=== PATIENT | female | born 1980 | race Caucasian/White ===

== ENCOUNTER 2018-12-23 13:17 | Emergency (ER) | payer BC ==
[2018-12-23 13:23] VITALS: BP 143/106; PULSE 88; TEMP 98.1; BMI 35.9
--- NOTE | 2018-12-23 13:23 | PDOC ---
Rapid Medical Evaluation Time Seen by Provider: 12/23/18 13:18 Medical Evaluation: Allergies Allergy/AdvReac Type Severity Reaction Status Date / Time No Known Allergies Allergy Verified 08/08/16 20:57 12/23/18 13:19 The patient presents for R sided flank pain/low back pain for one month Exam: NAD, no gross neuro deficits, gait intact, TTP of the r paraspinous muscles Orders: urine Pt to proceed to the ED for further evaluation Discharge Disposition - Diagnosis Low back pain Qualifiers: Chronicity: acute Back pain laterality: right Sciatica presence: without sciatica Qualified Code(s): M54.5 - Low back pain - Referrals - Patient Instructions - Post Discharge Activity
[2018-12-23] MEDS ORDERED: IBUPROFEN 400 MG TABLET (FP) PO ONE ×2 (14:01→14:18)
[2018-12-23 14:30] LABS: URINE APPEARANCE CLEAR; URINE BILIRUBIN NEGATIVE (NEGATIVE); URINE COLOR YELLOW; URINE GLUCOSE (UA) NEGATIVE (NEGATIVE); URINE KETONE NEGATIVE (NEGATIVE); URINE LEUK ESTERASE NEGATIVE (NEGATIVE); URINE NITRITE NEGATIVE (NEGATIVE); URINE PROTEIN NEGATIVE (NEGATIVE); URINE UROBILINOGEN 0.2 mg/dL (0.2-1.0)
--- NOTE | 2018-12-23 14:48 | PDOC ---
History of Present Illness - General Chief Complaint: Back Pain Stated Complaint: BACK PAIN Time Seen by Provider: 12/23/18 13:18 History Source: Patient Exam Limitations: No Limitations - History of Present Illness Associated Symptoms: denies: fever/chills Past History - Travel Traveled outside of the country in the last 30 days: No Close contact w/someone who was outside of country & ill: No - Past Medical History Allergies/Adverse Reactions: Allergies Allergy/AdvReac Type Severity Reaction Status Date / Time No Known Allergies Allergy Verified 12/23/18 13:21 Home Medications: Ambulatory Orders Amlodipine Besylate [Norvasc -] 10 mg PO DAILY 08/08/16 Cyclobenzaprine HCl [Flexeril -] 10 mg PO TID #21 tablet 12/23/18 Ibuprofen 800 mg PO ACDIN 7 Days #21 tablet 12/23/18 COPD: No - Reproductive History (#): 6 Para: 5 Tubal Ligation: No - Suicide/Smoking/Psychosocial Hx Smoking Status: No Smoking History: Never smoked Years of Tobacco Use: 0 Number of Cigarettes Smoked Daily: 0 Cigars Per Day: 0 Hx Alcohol Use: No Drug/Substance Use Hx: No Substance Use Type: None Review of Systems - Review of Systems Able to Perform ROS?: No Is the patient limited Singaporean proficient: No Constitutional: No: Chills, Fever ABD/GI: No: Abdominal Distended : No: Burning, Dysuria, Frequency, Flank Pain, Urgency Musculoskeletal: Yes: Back Pain. No: Joint Swelling, Muscle Pain, Muscle Weakness, Joint Stiffness Neurological: No: Numbness, Paresthesia, Tingling, Weakness, Unsteady Gait *Physical Exam - Vital Signs Last Vital Signs Temp Pulse Resp BP Pulse Ox 98.1 F 88 18 143/106 H 97 12/23/18 13:21 12/23/18 13:21 12/23/18 13:21 12/23/18 13:21 12/23/18 13:21 - Physical Exam General Appearance: Yes: Nourished Respiratory/Chest: positive: Lungs Clear, Normal Breath Sounds Cardiovascular: positive: Regular Rhythm, Regular Rate, S1, S2 Musculoskeletal: positive: Muscle Spasm (paraspinal tenderness in LS spine, stable gait) Integumentary: positive: Normal Color Neurologic: positive: business center representative II-XII NML intact, Fully Oriented, Alert ED Treatment Course - ADDITIONAL ORDERS Additional order review: Laboratory Results 12/23/18 12/23/18 14:11 13:29 Urine Color Yellow Urine Appearance Clear Urine pH 5.0 Ur Specific [place] 1.018 Urine Protein Negative Urine Glucose (UA) Negative Urine Ketones Negative Urine Blood Negative Urine Nitrite Negative Urine Bilirubin Negative Urine Urobilinogen 0.2 Ur Leukocyte Esterase Negative Urine HCG, Qual Negative - Medications Given in the ED: ED Medications Discontinued Medications Generic Name Dose Route Start Last Admin Trade Name Kerry PRN Reason Stop Dose Admin Ibuprofen 800 mg 12/23/18 14:01 12/23/18 14:32 Motrin - PO 12/23/18 14:02 800 mg ONCE ONE Administration Medical Decision Making - Medical Decision Making 12/23/18 14:43 38y/o F with chronic back pain X 1 month, denies UTI sx, f/c, b/b incontinence or saddle anesthesia, no trauma. Pt is mainly on the right side of back Exam with paraspinal tenderness on the right--Lumbasacral region UA wnl offered toradol pt fearful of needles Rx for nsaid and muscle relaxant f/u with PCP 12/23/18 16:29 12/23/18 19:21 *DC/Admit/Observation/Transfer Diagnosis at time of Disposition: Low back pain Qualifiers: Chronicity: acute Back pain laterality: right Sciatica presence: without sciatica Qualified Code(s): M54.5 - Low back pain - Discharge Dispostion Disposition: HOME Condition at time of disposition: Stable Decision to Admit order: No - Prescriptions Prescriptions: Cyclobenzaprine HCl [Flexeril -] 10 mg PO TID #21 tablet Ibuprofen 800 mg PO ACDIN 7 Days #21 tablet - Referrals - Patient Instructions Printed Discharge Instructions: DI for Low Back Pain, DI for Thoracic Back Pain Additional Instructions: you were seen for back pain today. YOur urine test was negative for urinary infection. Take medication as prescribed. Do not drive or operate heavy machinery while taking the muscle relaxant medication, Return to the ER if worsening symptom occurs - Post Discharge Activity
== END 2018-12-23 14:54 | disposition home or self-care (01) ==
LOC: JERFT 13:17
DX: M54.5 Low back pain (principal); G89.29 Other chronic pain
CPT/HCPCS: 81003; 84703; 87086; 99281-25

== ENCOUNTER 2019-07-12 16:32 | Inpatient (IN) | payer BC ==
--- NOTE | 2019-07-12 16:38 | PDOC ---
Rapid Medical Evaluation Chief Complaint: Pain Time Seen by Provider: 07/12/19 16:36 Medical Evaluation: Allergies Allergy/AdvReac Type Severity Reaction Status Date / Time No Known Allergies Allergy Verified 07/12/19 16:35 07/12/19 16:36 I have performed a brief in-person evaluation of this patient. The patient presents with a chief complaint of: NVD and abdominal pain since 4am. no recent travel, no known sick contacts. Pertinent physical exam findings: (+)febrile, Pt looks in mild discomfort from pain, epigastric abdominal tenderness I have ordered the following: CBC, CMP, lipase, mg, phos, UA, UCG. IV fluids, pepcid, zofran. The patient will proceed to the ED for further evaluation. Discharge Disposition - Diagnosis Abdominal pain - Referrals - Patient Instructions - Post Discharge Activity
[2019-07-12] MEDS ORDERED: ONDANSETRON 4 MG/2 ML VIAL IVPUSH ONE (16:39)
[2019-07-12] MEDS ORDERED: FAMOTIDINE 20 MG/50 ML IVPB 20 MG/50 ML MG IVPB ONE ×2 (16:39→19:29)
[2019-07-12] MEDS ORDERED: SODIUM CHLORIDE 1,000 ML IV STA (16:39)
[2019-07-12 17:41] LABS: BASO % 0.3 % (0-2.0); HEMATOCRIT 37.8 % (32.4-45.2); HEMOGLOBIN 12.3 GM/dL (10.7-15.3); LYMPH % 2.5 % (8-40); MCH 23.3 pg (25.7-33.7); MCHC 32.4 g/dl (32.0-36.0); MEAN CELL VOLUME 71.7 fl (80-96); MONO % 4.5 % (3.8-10.2); NEUT % 92.7 % (42.8-82.8); PLATELET COUNT 294 K/MM3 (134-434); RBC 5.27 M/mm3 (3.60-5.2); WHITE BLOOD COUNT 16.4 K/mm3 (4.0-10.0)
[2019-07-12 17:55] LABS: PH,URINE >= 9.0 (5.0-8.0); URINE APPEARANCE CLEAR; URINE BILIRUBIN NEGATIVE (NEGATIVE); URINE COLOR YELLOW; URINE GLUCOSE (UA) NEGATIVE (NEGATIVE); URINE KETONE NEGATIVE (NEGATIVE); URINE LEUK ESTERASE NEGATIVE (NEGATIVE); URINE NITRITE NEGATIVE (NEGATIVE); URINE PROTEIN TRACE (NEGATIVE); URINE UROBILINOGEN 0.2 mg/dL (0.2-1.0)
[2019-07-12 18:14] LABS: MAGNESIUM 1.6 mg/dL (1.8-2.4)
[2019-07-12 18:16] LABS: PHOSPHOROUS 0.9 mg/dL (2.5-4.9)
[2019-07-12 18:17] LABS: ALBUMIN 3.9 g/dl (3.4-5.0); BILIRUBIN,TOTAL 0.6 mg/dL (0.2-1); BLOOD UREA NITROGEN 10.9 mg/dL (7-18); CALCIUM 9.1 mg/dL (8.5-10.1); CREATININE 0.8 mg/dL (0.55-1.3); POTASSIUM 3.6 mmol/L (3.5-5.1); TOT PROT 7.4 g/dl (6.4-8.2)
--- NOTE | 2019-07-12 18:17 | PDOC ---
History of Present Illness - General Chief Complaint: Pain Stated Complaint: G.I.UPSET Time Seen by Provider: 07/12/19 16:36 History Source: Patient Exam Limitations: No Limitations - History of Present Illness Initial Comments: 07/12/19 18:16 HPI: 39yo F with PMH HTN presenting with abdominal pain, body aches, n / v, fever / chills since 4 AM (14 hours). Pt awoke with nausea and vomiting, with 10 + episodes of non-bloody non-bilious emesis. No change in diet, unique foods, known sick contacts, recent travels. No prior episodes like this, no FHx of IBD. Denies chest pain, cough, SOB, urinary symptoms. 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 All: NKDA Meds: Denies PMH: HTN PSH: 2008 SHx: Works in a long-term, [place] [employer] [place] Past History - Travel Traveled outside of the country in the last 30 days: No Close contact w/someone who was outside of country & ill: No - Past Medical History Allergies/Adverse Reactions: Allergies Allergy/AdvReac Type Severity Reaction Status Date / Time No Known Allergies Allergy Verified 07/12/19 16:35 Home Medications: Ambulatory Orders Amlodipine Besylate [Norvasc -] 10 mg PO DAILY 08/08/16 Cyclobenzaprine HCl [Flexeril -] 10 mg PO TID #21 tablet 12/23/18 Ibuprofen 800 mg PO ACDIN 7 Days #21 tablet 12/23/18 COPD: No HTN: Yes - Reproductive History (#): 6 Para: 5 Tubal Ligation: No - Immunization History Immunization Up to Date: Yes - Psycho Social/Smoking Cessation Hx Smoking Status: No Smoking History: Never smoked Years of Tobacco Use: 0 Number of Cigarettes Smoked Daily: 0 Cigars Per Day: 0 Hx Alcohol Use: No Drug/Substance Use Hx: No Substance Use Type: None Review of Systems - Review of Systems Able to Perform ROS?: Yes Is the patient limited Tajik proficient: Yes Constitutional: Yes: Chills, Fever, Weakness. No: Diaphoresis, Night Sweats, Unintentional Wgt. Loss, Unexplained wgt Loss HEENTM: No: Eye Pain, Nose Congestion, Tinnitus, Throat Swelling, Mouth Pain Respiratory: No: Cough, Shortness of Breath, Stridor, Wheezing Cardiac (ROS): No: Chest Pain, Edema, Irregular Heart Rate, Palpitations, Syncope, Chest Tightness ABD/GI: Yes: Diarrhea, Nausea, Poor Appetite, Poor Fluid Intake, Vomiting. No: Blood Streaked Bowels, Constipated, Rectal Bleeding, Indigestion, Abdominal cramping, Tarry Stools : No: Burning, Dysuria, Discharge, Frequency, Pain Musculoskeletal: Yes: Muscle Pain, Muscle Weakness. No: Back Pain Integumentary: No: Bruising, Pallor, Pruritus, Rash Neurological: Yes: Numbness, Weakness. No: Headache, Paresthesia, Tingling, Tremors, Unsteady Gait Psychiatric: Yes: Change in Appetite. No: Stressors, Mood Swings Endocrine: No: Excessive Sweating, Intolerance to Cold, Intolerance to Heat, Increased Hunger, Increased Thirst Hematologic/Lymphatic: No: Anemia, Blood Clots, Easy Bleeding, Easy Bruising All Other Systems: Reviewed and Negative *Physical Exam - Vital Signs Last Vital Signs Temp Pulse Resp BP Pulse Ox 100.5 F H 117 H 22 H 131/99 100 07/12/19 16:35 07/12/19 16:35 07/12/19 16:35 07/12/19 16:35 07/12/19 16:35 - Physical Exam Comments: 07/12/19 18:52 Vitals reviewed, notable for fever, tachycardia - meets SIRS criteria WDWN woman, appears stated age, NCAD, seated in a wheelchair in room 5 NCAT, MMM, EOMI, PERRL, normal morphologies RRR, nl s1s2, no murmurs appreciated CTABL, normal WOB, no wheezes / rales / rhonchi Soft, non-distended, tender in epigastrium and mildly in LUQ, non-tender in lower abdomen / RUQ WWP, no clubbing / cyanosis / edema Alert and oriented, MAEE, CN grossly intact, sensation to light touch preserved in LE, 5+ LE strength ED Treatment Course - LABORATORY CBC & Chemistry Diagram: 07/12/19 17:25 07/12/19 17:25 - ADDITIONAL ORDERS Additional order review: Laboratory Results 07/12/19 07/12/19 07/12/19 17:25 17:25 17:25 Magnesium 1.6 L Lipase 80 Beta HCG, Quant Urine Color Yellow Urine Appearance Clear Urine pH >= 9.0 H D Ur Specific [place] 1.017 Urine Protein Trace Urine Glucose (UA) Negative Urine Ketones Negative Urine Blood Negative Urine Nitrite Negative Urine Bilirubin Negative Urine Urobilinogen 0.2 Ur Leukocyte Esterase Negative Urine HCG, Qual Negative 07/12/19 17:25 Magnesium Lipase Beta HCG, Quant < 1.0 Urine Color Urine Appearance Urine pH Ur Specific [place] Urine Protein Urine Glucose (UA) Urine Ketones Urine Blood Urine Nitrite Urine Bilirubin Urine Urobilinogen Ur Leukocyte Esterase Urine HCG, Qual 07/12/19 17:25 RBC 5.27 H MCV 71.7 L MCHC 32.4 RDW 17.0 H MPV 9.0 Neutrophils % 92.7 H Lymphocytes % 2.5 L D Monocytes % 4.5 Eosinophils % 0.0 D Basophils % 0.3 Medical Decision Making - Medical Decision Making 07/12/19 18:46 39yo F with PMH HTN presenting with abdominal pain, n / v, fever / chills since 4 AM (14 hours). Febrile, tender, nauseous in the department. DDX: Viral gastroenteritis, new onset IDB/IBS. Initial labs with Phosphate 0.9, critically low - possible cause of patient's full body aches / cramps vs. feature of viral syndrome. Leukocytosis c/w infectious etiology. -CBC, CMP, Lipase, Mg, Phos -IVF, IV Tylenol, Pepcid, Zofran, Imodium -Saline Lock, Insert -IV Mg, IV Phos -UA, UCx, UPreg -EKG 07/12/19 18:55 -Spoke with pharmacy, recommended 30mm NaPhos in NS or D5W given over 8 hours -Phos reduction possibly exacerbated by underlying vitamin D deficiency -Negative test, no UTI, normal lipase 07/12/19 19:31 -Patient likely admission given severe hypophosphatemia of unclear etiology -PCP is [facility], will admit to hospitalist -EKG with NSR, normal axis, normal intervals, no ischemic changes 07/12/19 20:29 -Patient is now drinking water, feeling some improvement with medication Discharge - Discharge Information Problems reviewed: Yes Clinical Impression/Diagnosis: Abdominal pain Qualifiers: Abdominal location: epigastric Qualified Code(s): R10.13 - Epigastric pain Condition: Guarded - Admission Yes - Follow up/Referral - Patient Discharge Instructions - Post Discharge Activity
[2019-07-12 18:22] LABS: PLATELET ESTIMATE ADEQUATE
[2019-07-12] MEDS ORDERED: ACETAMINOPHEN 1000 MG/100 ML VIAL (NON FORMULARY) IVPB ONE (18:46)
[2019-07-12] MEDS ORDERED: MAGNESIUM SULF 50% (8.12 MEQ/2 ML-1 GM VIAL) IVPB ONE (18:50)
[2019-07-12] MEDS ORDERED: SODIUM PHOSPHATE - 30 MM in DEXTROSE 5%-WATER - 250 ML IVPB ONE (18:56)
[2019-07-12] MEDS ORDERED: LOPERAMIDE HCL 1 MG/5 ML UNIT DOSE CUP PO ONE (19:00)
[2019-07-12] MEDS ORDERED: ACETAMINOPHEN INJECTION 100 ML IVPB ONE (19:28)
[2019-07-12] MEDS ORDERED: ONDANSETRON 4 MG/2 ML VIAL ONE (19:29)
[2019-07-12] MEDS ORDERED: MAGNESIUM SULF 50% (8.12 MEQ/2 ML-1 GM VIAL) ONE (19:45)
--- NOTE | 2019-07-12 21:46 | PDOC ---
Documentation entered by Marimar Montes SCRIBE, acting as scribe for Apryl Steele MD. Apryl Steele MD: This documentation has been prepared by the scribe, Marimar Montes SCRIBE, under my direction and personally reviewed by me in its entirety. I confirm that the documentation accurately reflects all work, treatment, procedures, and medical decision making performed by me. Attending Attestation - Resident Resident Name: Holden Frazier - HPI HPI: 07/12/19 18:46 The patient is a 39-year-old female with a past medical history significant for HTN who presents to the emergency department with nausea, vomiting, diarrhea and abdominal pain since 4:00 am today. The patient reports she woke up feeling nauseous since then she had 10 episodes of NBNB vomiting, and diarrhea associated with abdominal pain, fever, and chills. Denies known sick contact or recent travel. - Physicial Exam PE: 07/12/19 21:[address] Frazier's physical exam - Medical Decision Making 07/12/19 21:42 phosphorous is critically low,will need to be repleted along with her magnesium pt febrile,tachycardic admitted for gastroenteritis and electrolyte abnormalities 07/12/19 21:45 07/12/19 22:15
[2019-07-12] MEDS ORDERED: ONDANSETRON 4 MG/2 ML VIAL IVPUSH PRN (22:25)
--- NOTE | 2019-07-12 22:40 | HP ---
Admitting History and Physical - Primary Care Physician PCP: Espinoza Orta - Admission Chief Complaint: Fever, Chills, Diarrhea, Abdominal Pain History of Present Illness: This is a 39 y/o woman with a PMHx of HTN. Who presents to the ED with nausea, vomiting, diarrhea and abdominal pain since 4:00 am today. The patient reports she woke up feeling nauseous since then she had 10 episodes of NBNB vomiting, and diarrhea associated with abdominal pain, fever, and chills. Denies known sick contact or recent travel. History Source: Patient Limitations to Obtaining History: No Limitations - Past Medical History Cardiovascular: Yes: HTN ...LMP: 06/23/19 ...: No - Past Surgical History Past Surgical History: Yes: None - Smoking History Smoking history: Never smoked Aproximately how many cigarettes per day: 0 - Alcohol/Substance Use Hx Alcohol Use: No History of Substance Use: reports: None - Social History Usual Living Arrangement: Yes: With Significant Other Do you think of yourself as: Straight/Heterosexual ADL: Independent History of Recent Travel: No Home Medications - Allergies Allergies/Adverse Reactions: Allergies Allergy/AdvReac Type Severity Reaction Status Date / Time No Known Allergies Allergy Verified 07/12/19 16:35 - Home Medications Home Medications: Ambulatory Orders Amlodipine Besylate [Norvasc -] 10 mg PO DAILY 08/08/16 Cyclobenzaprine HCl [Flexeril -] 10 mg PO TID #21 tablet 12/23/18 Ibuprofen 800 mg PO ACDIN 7 Days #21 tablet 12/23/18 Family Medical History Family Hx Cancer: Father (Colon Ca- ) Family Hx Gastrointestinal Disorder: Mother, Sister Family Hx Nuerologic Problems: Mother (Fibromyalgia) Review of Systems - Review of Systems Constitutional: reports: Chills, Fever, Loss of Appetite Eyes: reports: No Symptoms HENT: reports: No Symptoms Neck: reports: No Symptoms Cardiovascular: reports: No Symptoms Respiratory: reports: No Symptoms Gastrointestinal: reports: Abdominal Pain, Diarrhea, Nausea, Vomiting Genitourinary: reports: No Symptoms Breasts: reports: No Symptoms Reported Musculoskeletal: reports: No Symptoms Integumentary: reports: No Symptoms Neurological: reports: Headache Endocrine: reports: No Symptoms Hematology/Lymphatic: reports: No Symptoms Psychiatric: reports: No Symptoms Pain Intensity: 9 Physical Examination Vital Signs: Vital Signs Temperature 100.5 F H 10/14/19 16:35 Pulse Rate 117 H 07/12/19 16:35 Respiratory Rate 22 H 07/12/19 16:35 Blood Pressure 131/99 07/12/19 16:35 O2 Sat by Pulse Oximetry (%) 100 07/12/19 16:35 Constitutional: Yes: No Distress, Calm Eyes: Yes: WNL, Conjunctiva Clear, EOM Intact, PERRL HENT: Yes: WNL, Atraumatic, Normocephalic Neck: Yes: WNL, Supple, Trachea Midline Cardiovascular: Yes: WNL, Regular Rate and Rhythm, S1, S2 Respiratory: Yes: WNL, Regular, CTA Bilaterally Gastrointestinal: Yes: Soft, Abdomen, Obese, Hypoactive Bowel Sounds, Tenderness , Epigastrium ...Rectal Exam: Yes: Deferred Renal/: Yes: WNL Breast(s): Yes: WNL Musculoskeletal: Yes: WNL Extremities: Yes: WNL Edema: No Peripheral Pulses WNL: Yes Integumentary: Yes: WNL Neurological: Yes: WNL, Alert, Oriented, Cran Nerves II-XII Intact ...Motor Strength: WNL Psychiatric: Yes: WNL, Alert, Oriented Labs: CBC, BMP 07/12/19 17:25 07/12/19 17:25 Laboratory Results - last 24 hr 07/12/19 07/12/19 07/12/19 17:25 17:25 17:25 WBC 16.4 H RBC 5.27 H Hgb 12.3 Hct 37.8 MCV 71.7 L MCH 23.3 L D MCHC 32.4 RDW 17.0 H Plt Count 294 D MPV 9.0 Absolute Neuts (auto) 15.2 H Total Counted 100 Neutrophils % 92.7 H Neutrophils % (Manual) 88.0 H Band Neutrophils % 4.0 Lymphocytes % 2.5 L D Lymphocytes % (Manual) 3.0 L Monocytes % 4.5 Monocytes % (Manual) 5 Eosinophils % 0.0 D Basophils % 0.3 Nucleated RBC % 0 Platelet Estimate Adequate Platelet Comment No clumping noted Sodium 136 Potassium 3.6 Chloride 105 Carbon Dioxide 22 Anion Gap 9 BUN 10.9 Creatinine 0.8 Est GFR (CKD-EPI)AfAm 106.88 Est GFR (CKD-EPI)NonAf 92.22 Random Glucose 87 Calcium 9.1 Phosphorus Magnesium Total Bilirubin 0.6 AST 13 L ALT 19 Alkaline Phosphatase 82 Total Protein 7.4 Albumin 3.9 Lipase Beta HCG, Quant < 1.0 Urine Color Urine Appearance Urine pH Ur Specific [place] Urine Protein Urine Glucose (UA) Urine Ketones Urine Blood Urine Nitrite Urine Bilirubin Urine Urobilinogen Ur Leukocyte Esterase Urine HCG, Qual Influenza A (Rapid) Influenza B (Rapid) 07/12/19 07/12/19 07/12/19 17:25 17:25 17:25 WBC RBC Hgb Hct MCV MCH MCHC RDW Plt Count MPV Absolute Neuts (auto) Total Counted Neutrophils % Neutrophils % (Manual) Band Neutrophils % Lymphocytes % Lymphocytes % (Manual) Monocytes % Monocytes % (Manual) Eosinophils % Basophils % Nucleated RBC % Platelet Estimate Platelet Comment Sodium Potassium Chloride Carbon Dioxide Anion Gap BUN Creatinine Est GFR (CKD-EPI)AfAm Est GFR (CKD-EPI)NonAf Random Glucose Calcium Phosphorus 0.9 L* Magnesium 1.6 L Total Bilirubin AST ALT Alkaline Phosphatase Total Protein Albumin Lipase 80 Beta HCG, Quant Urine Color Yellow Urine Appearance Clear Urine pH >= 9.0 H D Ur Specific [place] 1.017 Urine Protein Trace Urine Glucose (UA) Negative Urine Ketones Negative Urine Blood Negative Urine Nitrite Negative Urine Bilirubin Negative Urine Urobilinogen 0.2 Ur Leukocyte Esterase Negative Urine HCG, Qual Negative Influenza A (Rapid) Influenza B (Rapid) 07/12/19 07/13/19 22:56 05:27 WBC RBC Hgb Hct MCV MCH MCHC RDW Plt Count MPV Absolute Neuts (auto) Total Counted Neutrophils % Neutrophils % (Manual) Band Neutrophils % Lymphocytes % Lymphocytes % (Manual) Monocytes % Monocytes % (Manual) Eosinophils % Basophils % Nucleated RBC % Platelet Estimate Platelet Comment Sodium 140 Potassium 3.2 L Chloride 107 Carbon Dioxide 26 Anion Gap 7 L BUN 8.8 Creatinine 0.7 Est GFR (CKD-EPI)AfAm 125.61 Est GFR (CKD-EPI)NonAf 108.38 Random Glucose 96 Calcium 8.0 L Phosphorus 4.1 Magnesium 2.5 H Total Bilirubin AST ALT Alkaline Phosphatase Total Protein Albumin Lipase Beta HCG, Quant Urine Color Urine Appearance Urine pH Ur Specific [place] Urine Protein Urine Glucose (UA) Urine Ketones Urine Blood Urine Nitrite Urine Bilirubin Urine Urobilinogen Ur Leukocyte Esterase Urine HCG, Qual Influenza A (Rapid) Negative Influenza B (Rapid) Negative Intake & Output 1007/11/19 07/12/19 07/13/19 23:59 23:59 23:59 23:59 Weight 86.183 kg Current Medications Generic Name Dose Route Start Last Admin Trade Name Freq PRN Reason Stop Dose Admin Acetaminophen 1,000 mg 07/13/19 01:12 Ofirmev Injection - IVPB Q6H PRN PAIN LEVEL 6-10 Amlodipine Besylate 10 mg 07/13/19 10:00 Norvasc - PO DAILY AMBER Heparin Sodium (Porcine) 5,000 unit 07/13/19 10:00 Heparin - SQ BID AMBER Famotidine/Sodium Chloride 20 mg in 50 mls @ 100 mls/hr 07/13/19 10:00 Pepcid 20 Mg Premixed Ivpb - IVPB BID AMBER Ondansetron HCl 4 mg 07/12/19 22:25 Zofran Injection IVPUSH Q6H PRN NAUSEA AND/OR VOMITING Imaging - Results Chest X-ray: Image Reviewed Problem List - Problems (1) Gastroenteritis Assessment/Plan: Likely viral Fluid Bolus, Zofran, Pepcid given in ED Monitor CBC, BMP Continue IVF Appreciate GI consult Consider stool cultures Advance Diet ad tae Monitor vitals Code(s): K52.9 - NONINFECTIVE GASTROENTERITIS AND COLITIS, UNSPECIFIED (2) Hypophosphatemia Assessment/Plan: Likely due to Diarrhea Repleted in ED Phos check in am Code(s): E83.39 - OTHER DISORDERS OF PHOSPHORUS METABOLISM (3) Hypomagnesemia Assessment/Plan: Likely due to Diarrhea and Vomiting Repleted in ED Monitor Mg Code(s): E83.42 - HYPOMAGNESEMIA (4) HTN (hypertension) Assessment/Plan: stable Continue Amlodipine Besylate Monitor renal function Code(s): I10 - ESSENTIAL (PRIMARY) HYPERTENSION Assessment/Plan This is a 39 y/o woman with a PMHx of HTN. Admitted to [facility] for Acute Electrolyte Imbalance, Gastroenteritis for further evaluation of their emergent condition. Plan: See Problem List FEN NS@75ml/hr Repleted Mg, Phos in ED, continue to monitor NPO DVT ppx OOB SCDs Heparin SQ Dispo: Requires Inpatient Care Visit type - Emergency Visit Emergency Visit: Yes ED Registration Date: 07/12/19 Care time: The patient presented to the Emergency Department on the above date and was hospitalized for further evaluation of their emergent condition. - New Patient This patient is new to me today: Yes Date on this admission: 07/12/19 - Critical Care Critical Care patient: No
[2019-07-13] MEDS ORDERED: ACETAMINOPHEN 1000 MG/100 ML VIAL (NON FORMULARY) IVPB PRN (01:12)
[2019-07-13 06:00] LABS: BASO % 0.3 % (0-2.0); EOS % 0.1 % (0-4.5); HEMATOCRIT 31.9 % (32.4-45.2); HEMOGLOBIN 10.6 GM/dL (10.7-15.3); LYMPH % 9.3 % (8-40); MCH 23.9 pg (25.7-33.7); MCHC 33.2 g/dl (32.0-36.0); MEAN PLT VOLUME 8.5 fl (7.5-11.1); MONO % 10.2 % (3.8-10.2); NEUT % 80.1 % (42.8-82.8); PLATELET COUNT 238 K/MM3 (134-434); RBC 4.44 M/mm3 (3.60-5.2); RDW 17.3 % (11.6-15.6); WHITE BLOOD COUNT 10.4 K/mm3 (4.0-10.0)
[2019-07-13 06:32] LABS: BLOOD UREA NITROGEN 8.8 mg/dL (7-18); CREATININE 0.7 mg/dL (0.55-1.3); MAGNESIUM 2.5 mg/dL (1.8-2.4); PHOSPHOROUS 4.1 mg/dL (2.5-4.9); POTASSIUM 3.2 mmol/L (3.5-5.1)
[2019-07-13] MEDS ORDERED: POTASSIUM CHLORIDE TABS 20 MEQ TABLET.ER (FP) PO ONE (06:47)
[2019-07-13] MEDS ORDERED: POTASSIUM CHLORIDE TABS 10 MEQ TABLET.ER (FP) ONE (07:48)
--- NOTE | 2019-07-13 08:21 | CON.GI ---
Consult Consult Specialty:: GI Referred by:: Apryl Hopper NP Reason for Consultation:: Gastroenteritis - History of Present Illness History of Present Illness: Patient is a 39 y/o female with past medical history of HTN. Patient states that at 3am on 07/12/19 she began having lower abdominal cramping accompanied with non-bloody diarrhea. Accompanied with night awakening and fevers. She states later that day she begann experiencing epigastric pain accompanied with nausea and vomiting. Vomitus was initially food contents but then became bilious in color. She says she was unable to keep food down. Prior to experiencing these symptoms she states she was in her usual state of health. Denies rectal bleeding, melena, or abnormal weight loss. - History Source History Provided By: Patient Limitations to Obtaining History: No Limitations - Past Medical History Cardio/Vascular: Yes: HTN ...LMP: 06/23/19 ...: No - Past Surgical History Past Surgical History: Yes: None - Alcohol/Substance Use Hx Alcohol Use: No History of Substance Use: reports: None - Smoking History Smoking history: Never smoked Aproximately how many cigarettes per day: 0 - Social History ADL: Independent History of Recent Travel: No Home Medications - Allergies Allergies/Adverse Reactions: Allergies Allergy/AdvReac Type Severity Reaction Status Date / Time No Known Allergies Allergy Verified 07/12/19 16:35 - Home Medications Home Medications: Ambulatory Orders Amlodipine Besylate [Norvasc -] 10 mg PO DAILY 08/08/16 Cyclobenzaprine HCl [Flexeril -] 10 mg PO TID #21 tablet 12/23/18 Ibuprofen 800 mg PO ACDIN 7 Days #21 tablet 12/23/18 Family Medical History Family Hx Cancer: Father (colon cancer) Review of Systems - Review of Systems Constitutional: reports: Loss of Appetite Eyes: reports: No Symptoms HENT: reports: No Symptoms Neck: reports: No Symptoms Cardiovascular: reports: No Symptoms Respiratory: reports: No Symptoms Gastrointestinal: reports: Abdominal Pain, Diarrhea, Nausea, Vomiting Genitourinary: reports: No Symptoms Breasts: reports: No Symptoms Reported Musculoskeletal: reports: No Symptoms Integumentary: reports: No Symptoms Neurological: reports: No Symptoms Endocrine: reports: No Symptoms Hematology/Lymphatic: reports: No Symptoms Psychiatric: reports: No Symptoms Physical Exam-GI Vital Signs: Vital Signs Temperature 97.7 F 07/13/19 07:55 Pulse Rate 93 H 07/13/19 07:55 Respiratory Rate 17 07/13/19 07:55 Blood Pressure 133/85 07/13/19 07:55 O2 Sat by Pulse Oximetry (%) 99 07/13/19 07:55 Constitutional: Yes: No Distress, Calm Eyes: Yes: Conjunctiva Clear HENT: Yes: Atraumatic Cardiovascular: Yes: Regular Rate and Rhythm Respiratory: Yes: Regular, CTA Bilaterally Gastrointestinal Inspection: Yes: WNL. No: Ascites, Distention, Hernia, Scars, Other ...Auscultate: Yes: Normoactive Bowel Sounds. No: Hyperactive Bowel Sounds, Hypoactive Bowel Sounds, No Bowel Sounds, Other ...Palpate: Yes: Soft, Tenderness, Tenderness, Epigastium (lower, mid) ...Percussion: Yes: Other (high tympany). No: Dullness, Fluid Wave, Tympanitic Labs: CBC, BMP 07/13/19 05:27 07/13/19 05:27 Problem List - Problems (1) Gastroenteritis Code(s): K52.9 - NONINFECTIVE GASTROENTERITIS AND COLITIS, UNSPECIFIED
[2019-07-13] MEDS: amLODIPine BESYLATE 10 MG TABLET (FP) PO SCH (09:54)
[2019-07-13] MEDS: HEPARIN NA (PORCINE) 5,000 UNITS/ML 1ML VIAL SQ SCH ×3 (09:54→21:20)
[2019-07-13] MEDS: SODIUM CHLORIDE 1,000 ML IV SCH ×2 (09:59→22:17)
[2019-07-13 10:34] VITALS: BMI 36.6
[2019-07-13] MEDS ORDERED: FLU VACCINE QUAD 60 MCG/0.5 ML (MDV 19-20) IM ONE (11:00)
[2019-07-13] MEDS: FAMOTIDINE 20 MG/50 ML IVPB 20 MG/50 ML MG IVPB SCH ×2 (11:40→21:11)
--- NOTE | 2019-07-13 12:52 | EKG ---
Test Reason : Blood Pressure : / mmHG Vent. Rate : 104 BPM Atrial Rate : 104 BPM P-R Int : 132 ms QRS Dur : 080 ms QT Int : 328 ms P-R-T Axes : 023 040 -10 degrees QTc Int : 431 ms SINUS TACHYCARDIA NONSPECIFIC T WAVE ABNORMALITY ABNORMAL ECG WHEN COMPARED WITH ECG OF 30-JAN-2013 20:47, NONSPECIFIC T WAVE ABNORMALITY NOW EVIDENT IN ANTEROLATERAL LEADS Confirmed by Tulio Ba MD ([id number]) on 07/13/2019 12:52:04 PM Referred By: Confirmed By:Tulio Ba MD
[2019-07-13] MEDS ORDERED: IBUPROFEN 400 MG TABLET (FP) PO ONE (13:23)
[2019-07-13] MEDS ORDERED: DEXTROSE 5%-WATER - 50 ML IVPB ONE (13:39)
[2019-07-13] MEDS ORDERED: cefTRIAXone SODIUM 1 GM VIAL ONE (13:39)
[2019-07-13] MEDS: CEFTRIAXONE 1 GM in DEXTROSE 5%-WATER - 50 ML IVPB SCH (13:41)
--- NOTE | 2019-07-13 14:32 | PN ---
Progress Note, Physician Chief Complaint: Abdominal Pain Diarrhea History of Present Illness: Previous notes and events reviewed awake and alert NAD sts having 2 episodes of non-bloody diarrhea denies abdominal pain - Current Medication List Current Medications: Active Medications Acetaminophen (Ofirmev Injection -) 1,000 mg IVPB Q6H PRN PRN Reason: PAIN LEVEL 6-10 Last Admin: 07/13/19 09:59 Dose: 1,000 mg Amlodipine Besylate (Norvasc -) 10 mg PO DAILY [facility] Last Admin: 07/13/19 09:54 Dose: 10 mg Heparin Sodium (Porcine) (Heparin -) 5,000 unit SQ BID [facility] Last Admin: 07/13/19 09:54 Dose: 5,000 unit Famotidine/Sodium Chloride (Pepcid 20 Mg Premixed Ivpb -) 20 mg in 50 mls @ 100 mls/hr IVPB BID [facility] Last Admin: 07/13/19 11:40 Dose: 100 mls/hr Ceftriaxone Sodium 1 gm/ (Dextrose) 50 mls @ 100 mls/hr IVPB DAILY [facility]; Protocol Last Admin: 07/13/19 13:41 Dose: 100 mls/hr Metronidazole (Flagyl 500mg Premixed Ivpb -) 500 mg in 100 mls @ 100 mls/hr IVPB Q8H-IV [facility] Last Admin: 07/13/19 09:54 Dose: 100 mls/hr Sodium Chloride (Normal Saline -) 1,000 mls @ 125 mls/hr IV ASDIR [facility] Stop: 07/15/19 17:14 Last Admin: 07/13/19 09:59 Dose: 125 mls/hr Ondansetron HCl (Zofran Injection) 4 mg IVPUSH Q6H PRN PRN Reason: NAUSEA AND/OR VOMITING - Objective Vital Signs: Vital Signs Temperature 98.1 F 07/13/19 10:30 Pulse Rate 81 07/13/19 10:30 Respiratory Rate 18 07/13/19 10:30 Blood Pressure 134/89 07/13/19 10:30 O2 Sat by Pulse Oximetry (%) 96 07/13/19 10:39 Constitutional: Yes: No Distress, Calm Eyes: Yes: Conjunctiva Clear HENT: Yes: Atraumatic Cardiovascular: Yes: Regular Rate and Rhythm Respiratory: Yes: Regular, CTA Bilaterally Gastrointestinal: Yes: Normal Bowel Sounds, Soft Musculoskeletal: Yes: WNL Extremities: Yes: WNL Edema: No Neurological: Yes: Alert, Oriented Psychiatric: Yes: Alert, Oriented Labs: CBC, BMP 07/13/19 05:27 07/13/19 05:27 Problem List - Problems (1) Gastroenteritis Assessment/Plan: -GI on board -Leukocytosis -afebrile -Ceftriaxone and Flagyl -IV hydration Code(s): K52.9 - NONINFECTIVE GASTROENTERITIS AND COLITIS, UNSPECIFIED (2) HTN (hypertension) Assessment/Plan: -Norvasc -low Na diet Code(s): I10 - ESSENTIAL (PRIMARY) HYPERTENSION (3) Hypokalemia Assessment/Plan: -K 3.2 -KCl PO 40mEq x 1 dose -monitor electrolyte and replete as needed Code(s): E87.6 - HYPOKALEMIA (4) Headache Assessment/Plan: -Motrin prn -Neurology consuslt Code(s): R51 - HEADACHE (5) Diarrhea Assessment/Plan: -Stool Culture, Stool WBC, O&P -IV hydration -Cetriaxone and Flagyl -leukocytosis -afebrile -GI on board Code(s): R19.7 - DIARRHEA, UNSPECIFIED Assessment/Plan see problem list dvt ppx
[2019-07-13] MEDS: MELATONIN 5 MG TABLETS PO PRN (22:14)
[2019-07-14 06:50] LABS: HEMATOCRIT 31.6 % (32.4-45.2); HEMOGLOBIN 10.4 GM/dL (10.7-15.3); MCH 23.9 pg (25.7-33.7); MCHC 32.8 g/dl (32.0-36.0); MEAN CELL VOLUME 72.9 fl (80-96); MEAN PLT VOLUME 8.5 fl (7.5-11.1); PLATELET COUNT 224 K/MM3 (134-434); RBC 4.34 M/mm3 (3.60-5.2); RDW 17.7 % (11.6-15.6); WHITE BLOOD COUNT 7.5 K/mm3 (4.0-10.0)
[2019-07-14 07:24] LABS: ALBUMIN 3.2 g/dl (3.4-5.0); BILIRUBIN,TOTAL 0.4 mg/dL (0.2-1); BLOOD UREA NITROGEN 5.6 mg/dL (7-18); CALCIUM 7.6 mg/dL (8.5-10.1); CREATININE 0.5 mg/dL (0.55-1.3); POTASSIUM 3.8 mmol/L (3.5-5.1); TOT PROT 6.3 g/dl (6.4-8.2)
--- NOTE | 2019-07-14 08:17 | PN.GI ---
GI Progress Note Subjective: Patient states diarrhea is improving, only had one episode during the night. Stool collected for cultures. She states her stools are dark in color. This AM labs showing downtrend with no leukocytosis and afebrile. Denies nausea, vomiting, rectal bleeding or blood in stool. - Objective Vital Signs: Vital Signs Temperature 98.2 F 07/14/19 06:38 Pulse Rate 82 07/14/19 06:38 Respiratory Rate 18 07/14/19 06:38 Blood Pressure 122/87 07/14/19 06:38 O2 Sat by Pulse Oximetry (%) 96 07/13/19 21:00 Constitutional: No Distress, Calm Eyes: Yes: Conjunctiva Clear HENT: Yes: Atraumatic Cardiovascular: Yes: Regular Rate and Rhythm Respiratory: Yes: Regular, CTA Bilaterally Gastrointestinal Inspection: Yes: WNL. No: Ascites, Distention, Hernia, Scars, Other ...Auscultate: Yes: Normoactive Bowel Sounds. No: Hyperactive Bowel Sounds, Hypoactive Bowel Sounds, No Bowel Sounds, Other ...Palpate: Yes: Soft, Tenderness (ruq/luq), Tenderness, Epigastium. No: Firm/ Rigid, Guarding, Hepatomegaly, Mass, Pulsatile Mass, Splenomegaly, Tenderness, Rebound, Other ...Percussion: Yes: Tympanitic. No: Dullness, Fluid Wave, Other Labs: CBC, BMP 07/14/19 06:10 07/14/19 06:10 Problem List - Problems (1) Gastroenteritis Assessment/Plan: >IV hydration >Ceftriaxone and Flagyl >Stool Culture, WBC pending Code(s): K52.9 - NONINFECTIVE GASTROENTERITIS AND COLITIS, UNSPECIFIED
--- NOTE | 2019-07-14 08:24 | PN ---
Progress Note, Physician - Current Medication List Current Medications: Active Medications Acetaminophen (Ofirmev Injection -) 1,000 mg IVPB Q6H PRN PRN Reason: PAIN LEVEL 6-10 Last Admin: 07/13/19 09:59 Dose: 1,000 mg Amlodipine Besylate (Norvasc -) 10 mg PO DAILY [facility] Last Admin: 07/13/19 09:54 Dose: 10 mg Heparin Sodium (Porcine) (Heparin -) 5,000 unit SQ BID [facility] Last Admin: 07/13/19 21:20 Dose: Not Given Famotidine/Sodium Chloride (Pepcid 20 Mg Premixed Ivpb -) 20 mg in 50 mls @ 100 mls/hr IVPB BID [facility] Last Admin: 07/13/19 21:11 Dose: 100 mls/hr Ceftriaxone Sodium 1 gm/ (Dextrose) 50 mls @ 100 mls/hr IVPB DAILY [facility]; Protocol Last Admin: 07/13/19 13:41 Dose: 100 mls/hr Metronidazole (Flagyl 500mg Premixed Ivpb -) 500 mg in 100 mls @ 100 mls/hr IVPB Q8H-IV [facility] Last Admin: 07/14/19 01:51 Dose: 100 mls/hr Sodium Chloride (Normal Saline -) 1,000 mls @ 125 mls/hr IV ASDIR [facility] Stop: 07/15/19 17:14 Last Admin: 07/13/19 22:17 Dose: 125 mls/hr Melatonin (Melatonin) 5 mg PO HS PRN PRN Reason: INSOMNIA Last Admin: 07/13/19 22:14 Dose: 5 mg Ondansetron HCl (Zofran Injection) 4 mg IVPUSH Q6H PRN PRN Reason: NAUSEA AND/OR VOMITING - Objective Vital Signs: Vital Signs Temperature 98.2 F 07/14/19 06:38 Pulse Rate 82 07/14/19 06:38 Respiratory Rate 18 07/14/19 06:38 Blood Pressure 122/87 07/14/19 06:38 O2 Sat by Pulse Oximetry (%) 96 07/13/19 21:00 Labs: CBC, BMP 07/14/19 06:10 07/14/19 06:10 Assessment/Plan - Problems (1) Gastroenteritis Assessment/Plan: -GI on board -Leukocytosis-resolved -afebrile -Ceftriaxone and Flagyl-?--ID Consult -IV hydration Code(s): K52.9 - NONINFECTIVE GASTROENTERITIS AND COLITIS, UNSPECIFIED (2) HTN (hypertension) Assessment/Plan: -Norvasc -low Na diet Code(s): I10 - ESSENTIAL (PRIMARY) HYPERTENSION (3) Hypokalemia Assessment/Plan: -K 3.2 -KCl PO 40mEq x 1 dose -monitor electrolyte and replete as needed Code(s): E87.6 - HYPOKALEMIA (4) Headache Assessment/Plan: -Motrin prn -Neurology consuslt Code(s): R51 - HEADACHE (5) Diarrhea Assessment/Plan: -Stool Culture, Stool WBC, O&P -IV hydration -Cetriaxone and Flagyl--? DC--ID Consult -leukocytosis-resolved -afebrile -GI on board Code(s): R19.7 - DIARRHEA, UNSPECIFIED
[2019-07-14] MEDS ORDERED: DEXTROSE 5%-WATER - 50 ML IVPB ONE (08:54)
[2019-07-14] MEDS ORDERED: cefTRIAXone SODIUM 1 GM VIAL ONE (08:54)
[2019-07-14] MEDS ORDERED: SUMAtriptan SUCCINATE 50 MG TABLET PO PRN (10:15)
[2019-07-14] MEDS: FAMOTIDINE 20 MG/50 ML IVPB 20 MG/50 ML MG IVPB SCH ×2 (10:19→21:03)
[2019-07-14] MEDS: CEFTRIAXONE 1 GM in DEXTROSE 5%-WATER - 50 ML IVPB SCH (10:20)
[2019-07-14] MEDS: HEPARIN NA (PORCINE) 5,000 UNITS/ML 1ML VIAL SQ SCH ×2 (10:21→21:03)
[2019-07-14] MEDS: amLODIPine BESYLATE 10 MG TABLET (FP) PO SCH (10:21)
[2019-07-14] MEDS: SODIUM CHLORIDE 1,000 ML IV SCH (10:22)
--- NOTE | 2019-07-14 10:26 | CONSULT ---
Consult - text type - Consultation Consultation Note: NEUROLOGY CONSULT GREATLY APPRECIATED: Events reviewed and discussed with PARKER Ventura and JASMINE Rueda. 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 Admitted with new onset diarrhea and abdominal discomfort, currently on IV Rocephin and Metronidazole. Describes "normal" headaches around menstruation when younger, now more frequent and severe over past 5 years. These headaches come without warning at any time of day and include periorbital /bitemporal "pressure" usually holocranial. +photophobia, phonophobia and kinesiophobia. These were initially relieved with 4 Ibuprofen or Naproxen, however have become daily headaches for past two weeks. This was initially attributed to requirement of eye glasses due to "eye strain, " however change in rx did not affect H/A. She denies prior neuroimaging. FH++ maternal uncle, sister and 12 yo son with "migraines"; mother with "fibromyalgia" and daughter with "growing pains" Review of systems sig for "growing pains" as a child and now with mostly nocturnal "sofía horses" awakening her from sleep. Legs pains prominent during her pregnancies.She also describes daytime symptoms of "toes curling." Both improve with movement. She also notes depression at this time. WBC 16.4-> 7.5; MCV= 72 AKIL: 194 lbs. BP 122/87. Afebrile. Neck supple. Neg SLR. Found sitting holding her episcopalian. NEURO: Awake, alert, responsive. Ox x 3. CNII-CNXII: EOM's full without nystagmus. Full walker. Motor: No drift or tremor. Strength normal. Reflexes normal. Toes downgoing. Coordination: No FTN dystaxia. Sensation: Normal to vibration. Romberg - Gait: Normal. Can walk heels, toes, tandem. Impression: Normal Neurological Exam Migraine headaches now converted to Chronic Daily Headache Syndrome (CDHS) secondary to analgesic overuse Contribution of Restless Limbs Syndrome (RLS). Worsened by Toxic-Metabolic Encephalopathy (?gastroenteritis) Suggest: D/C Tylenol/NSAIDs. Start topiramate 50 mg HS x 3 days, then increase to 75 mg x 3 days , then 100 mg HS for migraine prophylaxis Continue Zofran for nausea. Avoid Reglan. Add sumatriptan 50-100 mg prn for migraine Check Fe++, TIBC, Ferritin, TSH, B12, Lyme MRI of brain (C-) Thank you very much, David Stewart MD
[2019-07-14] MEDS ORDERED: SUMAtriptan SUCCINATE 50 MG TABLET PO ONE (10:30)
--- NOTE | 2019-07-14 13:04 | CONSULT ---
Consult Consult Specialty:: Infectious Disease Referred by:: Dr Palmer Reason for Consultation:: Acute Gastroenteritis - History of Present Illness Chief Complaint: Fever, diarrhea and vomting x1 day History of Present Illness: Pt is a 39 yo F with PMHx of recurrent headaches, HTN, recent BV treatment presenting from home with a days hx of loose bowel movements and vomiting x 1 day. Pt describes being in her usual state of health, does not remember breakfast or lunch on Friday but had white carri with beef stew, then cereal with 1% milk prior to going to bed. She woke up at night with lower abdominal pain 10 /10, sharp and passed well formed, non bloody, non mucoid stool. At 5am on Friday morning she started to have watery stool about 50cc or more x2 before noon. After noon she had about 8 episodes of intermitent sharp pain radiating from lower abdomen to epigastrium relieved with vomiting and passage of loose, non bloody, non tarry stool. Pt was nauseous and weak and unable to retain any water or food. She then presented to the ED and was noted to have a temperature of 100.5 with leukocytosis of 16.4 and significant electrolyte depletions. Last vomiting was at presentation and last stool movement was Friday night x2. Per pt she gets recurrent bacterial vaginosis and was recently treated 3 weeks earlier with PO flagyl. She had used the vaginal gel in the past and also been treated for trichomoniasis and chlamydia in the more distant past. Pt denies recent travels, has no pet. No sick contacts at home, no prior URTI. Usually does not get the flu vaccine. 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 CXR- No acute pathol UA- neg, Ucx-no growth Stool ova and parasites pending Stool cx pending PMHx: As above Gyne/sexual hx LMP 06/23- 3-5days every 28, regular (5 alive) Sexually active with one male partner, does not use protection Said she got HIV test in October which was negative Prior STD treatments documented PShx: C/Section x3 (17, 11 and 10 years ago) SHx: Lives with 3 kids Smoked from [age]years about 1 pack over a week Drinks socially Intermittent marijuana use, last use reported 3 weeks ago - History Source History Provided By: Patient, Medical Record Limitations to Obtaining History: No Limitations - Past Medical History Cardio/Vascular: Yes: HTN ...LMP: 06/23/19 ...: No - Past Surgical History Past Surgical History: Yes: None - Alcohol/Substance Use Hx Alcohol Use: No History of Substance Use: reports: None - Smoking History Smoking history: Never smoked Have you smoked in the past 12 months: No Aproximately how many cigarettes per day: 0 - Social History ADL: Independent History of Recent Travel: No Home Medications - Allergies Allergies/Adverse Reactions: Allergies Allergy/AdvReac Type Severity Reaction Status Date / Time No Known Allergies Allergy Verified 07/12/19 16:35 - Home Medications Home Medications: Ambulatory Orders Amlodipine Besylate [Norvasc -] 10 mg PO DAILY 08/08/16 Naproxen 500 mg PO BID 07/13/19 Review of Systems - Review of Systems Constitutional: denies: Chills, Fever Physical Exam Vital Signs: Vital Signs Temperature 98.2 F 07/14/19 06:38 Pulse Rate 82 07/14/19 06:38 Respiratory Rate 18 07/14/19 06:38 Blood Pressure 122/87 07/14/19 06:38 O2 Sat by Pulse Oximetry (%) 96 07/13/19 21:00 Constitutional: Yes: Calm, Obese Eyes: Yes: Conjunctiva Clear. No: Sclera Icterus HENT: Yes: Thrush. No: Nasal Congestion, Pharyngeal Erythema Neck: Yes: Supple Cardiovascular: Yes: S1, S2 Respiratory: Yes: CTA Bilaterally Gastrointestinal: Yes: Soft, Abdomen, Obese. No: Tenderness Edema: No Neurological: Yes: Alert, Oriented. No: Confusion, Dysarthria, Tremors ...Motor Strength: WNL Labs: CBC, BMP 07/14/19 06:10 07/14/19 06:10 Assessment/Plan Ambulatory Orders Amlodipine Besylate [Norvasc -] 10 mg PO DAILY 08/08/16 Naproxen 500 mg PO BID 07/13/19 Current Medications Amlodipine Besylate (Norvasc -) 10 mg PO DAILY [facility] Last Admin: 07/14/19 10:21 Dose: 10 mg Heparin Sodium (Porcine) (Heparin -) 5,000 unit SQ BID [facility] Last Admin: 07/14/19 10:21 Dose: 5,000 unit Famotidine/Sodium Chloride (Pepcid 20 Mg Premixed Ivpb -) 20 mg in 50 mls @ 100 mls/hr IVPB BID [facility] Last Admin: 07/14/19 10: Dose: 100 mls/hr Ceftriaxone Sodium 1 gm/ (Dextrose) 50 mls @ 100 mls/hr IVPB DAILY [facility]; Protocol Last Admin: 07/14/19 10:20 Dose: 100 mls/hr Metronidazole (Flagyl 500mg Premixed Ivpb -) 500 mg in 100 mls @ 100 mls/hr IVPB Q8H-IV [facility] Last Admin: 07/14/19 10:22 Dose: 100 mls/hr Sodium Chloride (Normal Saline -) 1,000 mls @ 125 mls/hr IV ASDIR [facility] Stop: 07/15/19 17:14 Last Admin: 07/14/19 10: Dose: 125 mls/hr Melatonin (Melatonin) 5 mg PO HS PRN PRN Reason: INSOMNIA Last Admin: 07/13/19 22:14 Dose: 5 mg Ondansetron HCl (Zofran Injection) 4 mg IVPUSH Q6H PRN PRN Reason: NAUSEA AND/OR VOMITING Sumatriptan Succinate (Imitrex -) 50 mg PO PRN PRN PRN Reason: HEADACHE Topiramate (Topamax -) 50 mg PO HS [facility] Assessment/Plan: Pt is a 39 yo F with PMHx of recurrent headaches, HTN, recent BV treatment presenting from home with a days hx of loose bowel movements and vomiting x 1 day. recurrent headaches, HTN, recent BV Loose stool N/v Acute gastroenteritis probably viral Plan: Acute gastroenteritis probably viral, pt without vomiting since admission, no BM today White count improved Stool O&P pending Stool cx pending Has been on ceftriaxone and flagyl, will d/c Will encourage PO intake D/W Dr Tony James MD PGY 3 Infectious disease rotation Visit type - Emergency Visit Emergency Visit: Yes ED Registration Date: 07/12/19 Care time: The patient presented to the Emergency Department on the above date and was hospitalized for further evaluation of their emergent condition. - New Patient This patient is new to me today: Yes Date on this admission: 07/14/19 - Critical Care Critical Care patient: No ATTENDING PHYSICIAN STATEMENT I saw and evaluated the patient. I reviewed the resident's note and discussed the case with the resident. I agree with the resident's findings and plan as documented. SUBJECTIVE: OBJECTIVE: ASSESSMENT AND PLAN:
--- NOTE | 2019-07-14 15:06 | PN ---
Teaching Attending Note Name of Resident: Suzy James ATTENDING PHYSICIAN STATEMENT I saw and evaluated the patient. I reviewed the resident's note and discussed the case with the resident. I agree with the resident's findings and plan as documented. SUBJECTIVE: vomiting resolved prior to coming to ed diarrhea has resolved too no travel no sick contacts hungry wants to eat OBJECTIVE: Vital Signs Period Temp Pulse Resp BP Sys/Harrington Pulse Ox Last 24 Hr 98 F-98.2 F 74-82 18-18 122-131/79-90 96 cor-rrr lungs clear abd soft,nt ext no edema no rash CBC, BMP 07/14/19 06:10 07/14/19 06:10 Microbiology 07/12/19 17:25 Urine - Urine Clean Catch Urine Culture - Final NO GROWTH OBTAINED- ASSESSMENT AND PLAN: acute gastroenteritis-resolving advance diet d/c antiiboitics please call back if needed
[2019-07-14] MEDS ORDERED: TOPIRAMATE 25 MG TABLET (FP) PO SCH (22:00)
[2019-07-14] MEDS: MELATONIN 5 MG TABLETS PO PRN (23:55)
--- NOTE | 2019-07-15 08:08 | PN.GI ---
GI Progress Note Subjective: Patient denies abdominal pain, nausea, vomiting, diarrhea, rectal bleeding. Patient is tolerating clear liquid diet. Labs show no leukocytosis and patient is afebrile. - Objective Vital Signs: Vital Signs Temperature 98.5 F 07/15/19 04:00 Pulse Rate 83 07/15/19 04:00 Respiratory Rate 18 07/15/19 04:00 Blood Pressure 141/97 07/15/19 04:00 O2 Sat by Pulse Oximetry (%) 99 07/14/19 21:00 Constitutional: No Distress, Calm Eyes: Yes: Conjunctiva Clear HENT: Yes: Atraumatic Cardiovascular: Yes: Regular Rate and Rhythm Respiratory: Yes: Regular, CTA Bilaterally Gastrointestinal Inspection: Yes: WNL. No: Ascites, Distention, Hernia, Scars, Other ...Auscultate: Yes: Normoactive Bowel Sounds. No: Hyperactive Bowel Sounds, Hypoactive Bowel Sounds, No Bowel Sounds, Other ...Palpate: Yes: Soft. No: Firm/Rigid, Guarding, Hepatomegaly, Mass, Pulsatile Mass, Splenomegaly, Tenderness, Tenderness, Epigastium, Tenderness, Rebound, Other ...Percussion: Yes: Tympanitic. No: Dullness, Fluid Wave, Other Neurological: Yes: Alert, Oriented Psychiatric: Yes: Alert, Oriented Labs: CBC, BMP 07/14/19 06:10 07/14/19 06:10 Active Medications Generic Name Dose Route Start Last Admin Trade Name Freq PRN Reason Stop Dose Admin Amlodipine Besylate 10 mg 07/13/19 10:00 07/14/19 10:21 Norvasc - PO 10 mg DAILY [facility] Administration Heparin Sodium (Porcine) 5,000 unit 07/13/19 10:00 07/14/19 21:03 Heparin - SQ Not Given BID [facility] Famotidine/Sodium Chloride 20 mg in 50 mls @ 100 mls/hr 07/13/19 10:00 21:03 Pepcid 20 Mg Premixed Ivpb - IVPB 100 mls/hr BID [facility] Administration Sodium Chloride 1,000 mls @ 125 mls/hr 07/13/19 09:15 07/14/19 10:22 Normal Saline - IV 07/15/19 17:14 125 mls/hr ASDIR [facility] Administration Melatonin 5 mg 07/13/19 21:56 07/14/19 23:55 Melatonin PO 5 mg HS PRN Administration INSOMNIA Ondansetron HCl 4 mg 07/12/19 22:25 Zofran Injection IVPUSH Q6H PRN NAUSEA AND/OR VOMITING Sumatriptan Succinate 50 mg 07/14/19 10:15 Imitrex - PO PRN PRN HEADACHE Topiramate 50 mg 07/14/19 22:00 07/14/19 21:45 Topamax - PO 50 mg HS [facility] Administration Problem List - Problems (1) Gastroenteritis Assessment/Plan: >IV hydration >antibiotics discontinued by ID will monitor off >Stool Culture and O&P pending >Stool WBC neg Code(s): K52.9 - NONINFECTIVE GASTROENTERITIS AND COLITIS, UNSPECIFIED
[2019-07-15] MEDS: amLODIPine BESYLATE 10 MG TABLET (FP) PO SCH (09:07)
[2019-07-15] MEDS: HEPARIN NA (PORCINE) 5,000 UNITS/ML 1ML VIAL SQ SCH ×2 (09:07→09:12)
[2019-07-15] MEDS: FAMOTIDINE 20 MG/50 ML IVPB 20 MG/50 ML MG IVPB SCH (09:07)
[2019-07-15 09:26] LABS: BASO % 0.6 % (0-2.0); EOS % 3.4 % (0-4.5); HEMOGLOBIN 11.5 GM/dL (10.7-15.3); LYMPH % 17.9 % (8-40); MCH 23.8 pg (25.7-33.7); MCHC 32.9 g/dl (32.0-36.0); MEAN CELL VOLUME 72.3 fl (80-96); MEAN PLT VOLUME 8.5 fl (7.5-11.1); MONO % 11.5 % (3.8-10.2); NEUT % 66.6 % (42.8-82.8); PLATELET COUNT 269 K/MM3 (134-434); RBC 4.83 M/mm3 (3.60-5.2)
--- NOTE | 2019-07-15 09:47 | PN ---
Progress Note (short form) - Note Progress Note: NEUROLOGY PROGRESS: PT received sumatriptan 50 mg x 1 with relief of headache within 10-20 minutes. Also received topiramate 50 mg HS and tolerated both medications well. Abdominal discomfort has greatly improved and pt hungry and wanting to eat. Feels "ready to go home." Still with poor sleep last night due to "cramps" in calves. GI, ID workup so far negative and IV antibiotics D/C'd. AKIL: Pt found sitting up in chair. Conversive. NEURO: Normal exam, unchanged. Impression: Migraine Headaches -improving Contribution of Restless Limbs Syndrome (RLS) Depression Suggest: Continue topiramate 50 mg x 2 nights, then 75 mg x 3 nights, then 100 mg HS for migraine prophylaxis Provide sumatriptan 50 mg prn for breakthrough headache Await Iron panel, B12, TSH, Lyme titre Await MRI of Brain (C-) Neuro f/u as outpatient for EEG, EMG of the legs and paraspinals as well as Rx for RLS Thank you very much, David Stewart MD
[2019-07-15 10:14] VITALS: BP 132/88; PULSE 78; TEMP 98.3
[2019-07-15 10:31] LABS: ALBUMIN 3.6 g/dl (3.4-5.0); BILIRUBIN,TOTAL 0.3 mg/dL (0.2-1); BLOOD UREA NITROGEN 5.5 mg/dL (7-18); CALCIUM 8.7 mg/dL (8.5-10.1); CREATININE 0.7 mg/dL (0.55-1.3); PHOSPHOROUS 2.8 mg/dL (2.5-4.9); POTASSIUM 4.2 mmol/L (3.5-5.1); TOT PROT 7.2 g/dl (6.4-8.2)
--- NOTE | 2019-07-15 12:35 | DS ---
Physical Examination Vital Signs: Vital Signs Temperature 98.3 F 07/15/19 10:00 Pulse Rate 78 07/15/19 10:00 Respiratory Rate 18 07/15/19 10:00 Blood Pressure 132/88 07/15/19 10:00 O2 Sat by Pulse Oximetry (%) 99 07/14/19 21:00 Constitutional: Yes: Calm Cardiovascular: Yes: Regular Rate and Rhythm, S1, S2 Respiratory: Yes: CTA Bilaterally Gastrointestinal: Yes: Normal Bowel Sounds, Soft Edema: No Psychiatric: Yes: Alert, Oriented Labs: CBC, BMP 07/15/19 08:20 07/15/19 08:20 Discharge Summary Problems reviewed: Yes Reason For Visit: VIRAL GASTROENTERITIS,HYPOHOSPHATEMIA Current Active Problems Abdominal pain (Acute) Diarrhea (Acute) Gastroenteritis (Acute) HTN (hypertension) (Acute) Headache (Acute) Hypokalemia (Acute) Hypomagnesemia (Acute) Hypophosphatemia (Acute) Hospital Course: his is a 39 y/o woman with a PMHx of HTN. Who presents to the ED with nausea, vomiting, diarrhea and abdominal pain since 4:00 am today. The patient reports she woke up feeling nauseous since then she had 10 episodes of NBNB vomiting, and diarrhea associated with abdominal pain, fever, and chills. Denies known sick contact or recent travel. seen by ID and GI antibiotics stopped and iv hydration advance diet acute gastroenteritis resolved Condition: Guarded - Instructions Diet, Activity, Other Instructions: low firbre lactose free diet folow up with dr Alicea in2 weeks Follow up with your PMD in one week - Home Medications Comprehensive Discharge Medication List: Ambulatory Orders Amlodipine Besylate [Norvasc -] 10 mg PO DAILY 08/08/16 Naproxen 500 mg PO BID 07/13/19
[2019-07-15] MEDS ORDERED: PT OWN MED DRAWER 7, Y5N ONE (13:14)
== END 2019-07-15 14:14 | disposition home or self-care (01) | DRG 391 ==
LOC: JER 16:32 → JERBED 20:23 → J8W 07-13 08:47
PROVIDERS: ADMIT Internal Medicine; ATTEND Family Medicine
DX: K52.9 Noninfective gastroenteritis and colitis, unspecified (principal); G93.41 Metabolic encephalopathy; I10 Essential (primary) hypertension; R10.13 Epigastric pain; E83.39 Other disorders of phosphorus metabolism; E83.42 Hypomagnesemia; R51 Headache; R19.7 Diarrhea, unspecified; E87.6 Hypokalemia; G43.909 Migraine, unspecified, not intractable, without status migrainosus; G25.81 Restless legs syndrome; F32.9 Major depressive disorder, single episode, unspecified
CPT/HCPCS: 36415; 71046-TC-FY; 80048; 80053; 81003; 82607; 82728; 83540; 83550; 83690; 83735; 84100; 84443; 84702; 84703; 85025; 85027; 86618; 87045; 87046; 87086; 87177; 87205; 87209; 87804; 93005; 93010; 99284-25; J0131; J1644; J7030; Q2036

== ENCOUNTER 2020-12-08 14:49 | Emergency (ER) | payer BC | END 2020-12-08 15:01 | disposition home or self-care (01) | LOC: JVIRT 14:49 | DX: R10.84 Generalized abdominal pain (principal) | CPT/HCPCS: G2251-GT ==

== ENCOUNTER 2020-12-11 10:30 | Emergency (ER) | payer BC ==
[2020-12-11 11:14] VITALS: BMI 36.8
[2020-12-11 12:47] LABS: BASO % 1.1 % (0-2.0); EOS % 3.4 % (0-4.5); HEMATOCRIT 33.5 % (32.4-45.2); HEMOGLOBIN 10.9 GM/dL (10.7-15.3); LYMPH % 20.4 % (8-40); MCH 23.8 pg (25.7-33.7); MCHC 32.7 g/dl (32.0-36.0); MEAN CELL VOLUME 72.8 fl (80-96); MONO % 7.6 % (3.8-10.2); NEUT % 67.5 % (42.8-82.8); PLATELET COUNT 324 K/MM3 (134-434); RDW 18.2 % (11.6-15.6); WHITE BLOOD COUNT 7.2 K/mm3 (4.0-10.0)
[2020-12-11 12:51] LABS: URINE APPEARANCE CLEAR; URINE BILIRUBIN NEGATIVE (NEGATIVE); URINE COLOR YELLOW; URINE GLUCOSE (UA) NEGATIVE (NEGATIVE); URINE KETONE NEGATIVE (NEGATIVE); URINE LEUK ESTERASE NEGATIVE (NEGATIVE); URINE NITRITE NEGATIVE (NEGATIVE); URINE PROTEIN NEGATIVE (NEGATIVE); URINE UROBILINOGEN 0.2 mg/dL (0.2-1.0)
[2020-12-11 12:53] LABS: HCG,QUALITATIVE URINE Negative
[2020-12-11 13:11] LABS: POTASSIUM 3.9 mmol/L (3.5-5.1)
[2020-12-11 13:15] LABS: ALBUMIN 3.7 g/dl (3.4-5.0); BLOOD UREA NITROGEN 9.3 mg/dL (7-18)
[2020-12-11 13:17] LABS: CREATININE 0.6 mg/dL (0.55-1.3)
[2020-12-11 13:19] LABS: BILIRUBIN,TOTAL 0.4 mg/dL (0.2-1); TOT PROT 7.4 g/dl (6.4-8.2)
[2020-12-11 17:43] VITALS: BP 166/99; PULSE 79; TEMP 98
== END 2020-12-11 18:36 ==
LOC: JER 10:30
DX: R10.11 Right upper quadrant pain (principal)
CPT/HCPCS: 36415; 74177-TC; 76705-TC; 80053; 81003; 83690; 84703; 85025; 93005; 93010; 99285-25; C9803; Q9967; U0003

== ENCOUNTER 2021-03-20 05:04 | Day surgery (SDC) | payer BC ==
[2021-03-19 15:09] VITALS: BMI 36.2
[2021-03-20 12:02] VITALS: TEMP 97.8
[2021-03-20 13:08] VITALS: BP 124/79; PULSE 78
== END 2021-03-20 13:08 | disposition home or self-care (01) ==
LOC: JASU-ENDO 05:04
PROVIDERS: ATTEND Internal Medicine Gastroenterology
PROC: 0DJD8ZZ Inspection of Lower Intestinal Tract, Via Natural or Artificial Opening Endoscopic (ICD-10-PCS; principal; 2021-03-20 11:15)
DX: Z12.11 Encounter for screening for malignant neoplasm of colon (principal); K64.8 Other hemorrhoids; Z80.0 Family history of malignant neoplasm of digestive organs
CPT/HCPCS: 81025

== ENCOUNTER 2022-06-24 19:25 | Emergency (ER) | payer BC ==
[2022-06-24 19:48] VITALS: BP 147/93; PULSE 75; RESP 19; TEMP 98.1; BMI 35.5
[2022-06-24] MEDS ORDERED: ONDANSETRON 4 MG/2 ML VIAL IVPUSH ONE (20:18)
[2022-06-24] MEDS ORDERED: SODIUM CHLORIDE 0.9% 500 ML INFUS.BAG IV ONE (20:18)
[2022-06-24] MEDS ORDERED: ACETAMINOPHEN 1000 MG/100 ML BAG IVPB ONE (20:18)
[2022-06-24] MEDS ORDERED: ACETAMINOPHEN INJECTION 100 ML IVPB ONE (20:40)
[2022-06-24] MEDS ORDERED: ONDANSETRON 4 MG/2 ML VIAL ONE (20:40)
[2022-06-24 21:07] LABS: BASO % 0.9 % (0-2.0); HEMATOCRIT 28.1 % (32.4-45.2); HEMOGLOBIN 9.1 GM/dL (10.7-15.3); LYMPH % 23.6 % (8-40); MCH 21.4 pg (25.7-33.7); MCHC 32.3 g/dl (32.0-36.0); MEAN PLT VOLUME 7.5 fl (7.5-11.1); MONO % 11.5 % (3.8-10.2); PLATELET COUNT 378 10^3/uL (134-434); RBC 4.26 M/mm3 (3.60-5.2); RDW 18.6 % (11.6-15.6); WHITE BLOOD COUNT 9.5 K/mm3 (4.0-10.0)
[2022-06-24 21:43] LABS: ANISOCYTOSIS 3+; MACROCYTOSIS 0; OVALOCYTE 1+; PLATELET ESTIMATE ADEQUATE; TARGET CELLS 2+
[2022-06-24 21:52] LABS: CALCIUM 8.1 mg/dL (8.5-10.1)
[2022-06-24 21:53] LABS: ALBUMIN 3.2 g/dl (3.4-5.0); BLOOD UREA NITROGEN 12.3 mg/dL (7-18)
[2022-06-24 21:56] LABS: CREATININE 0.8 mg/dL (0.55-1.3)
[2022-06-24 21:58] LABS: BILIRUBIN,TOTAL 0.4 mg/dL (0.2-1); TOT PROT 6.8 g/dl (6.4-8.2)
== END 2022-06-24 23:02 | disposition home or self-care (01) ==
LOC: JER 19:25
PROC: 3E0333Z Introduction of Anti-inflammatory into Peripheral Vein, Percutaneous Approach (ICD-10-PCS; principal; 2022-06-24)
PROC: 3E033GC Introduction of Other Therapeutic Substance into Peripheral Vein, Percutaneous Approach (ICD-10-PCS; 2022-06-24)
DX: R53.83 Other fatigue (principal); B96.81 Helicobacter pylori [H. pylori] as the cause of diseases classified elsewhere
CPT/HCPCS: 36415; 71046-TC-FY; 80053; 85025; 93005; 93010; 99285-25

== ENCOUNTER 2023-04-11 18:51 | Emergency (ER) | payer BC ==
[2023-04-11 19:03] VITALS: BP 130/90; PULSE 86; RESP 16; TEMP 97.8; BMI 38.0
== END 2023-04-11 21:37 | disposition home or self-care (01) ==
LOC: JERFT 18:51
DX: M79.644 Pain in right finger(s) (principal); M79.7 Fibromyalgia
CPT/HCPCS: 73130-TC-RT-FY; 99283-25

== ENCOUNTER 2024-04-08 13:20 | Emergency (ER) | payer BC ==
[2024-04-08 13:34] VITALS: BP 171/97; PULSE 88; RESP 18; TEMP 98.3; BMI 37.8
[2024-04-08 15:27] LABS: EPI CELLS >36 /uL (0-25.1); HYALINE CASTS 1 /uL (0-3.1); PH,URINE 7.5 (5.0-8.0); URINE APPEARANCE CLEAR; URINE BACTERIA 357 /uL (0-1359); URINE BILIRUBIN NEGATIVE (NEGATIVE); URINE COLOR YELLOW; URINE GLUCOSE (UA) NEGATIVE (NEGATIVE); URINE KETONE NEGATIVE (NEGATIVE); URINE LEUK ESTERASE NEGATIVE (NEGATIVE); URINE NITRITE NEGATIVE (NEGATIVE); URINE PROTEIN NEGATIVE (NEGATIVE); URINE RBC 11 /uL (0-23.9); URINE UROBILINOGEN 0.2 mg/dL (0.2-1.0); URINE WBC 18 /uL (0-25.8)
[2024-04-08 19:04] LABS: HIV INTERPRETATION NEGATIVE (NEGATIVE)
== END 2024-04-08 15:24 | disposition home or self-care (01) ==
LOC: JER 13:20
DX: N89.8 Other specified noninflammatory disorders of vagina (principal); L53.9 Erythematous condition, unspecified
CPT/HCPCS: 36415; 81003; 87070; 87077; 87086; 87205; 87389; 99283-25